=== PATIENT | female | born 1955 | race Caucasian/White ===

== ENCOUNTER → 2017-11-24 | Outpatient (CLI) | payer OTHER | END | disposition home or self-care (01) | LOC: STAR 10:46 | DX: R07.89 Other chest pain (principal) | CPT/HCPCS: 93005 ==

== ENCOUNTER 2019-08-13 20:34 | Emergency (ER) | payer MEDICARE ==
[~2019-08-13] VITALS: Ht 157.5 cm; Wt 71.3 kg
[2019-08-13 21:18] LABS: MICROSCOPIC AUTO
--- NOTE | 2019-08-13 21:24 | NUR ---
PT TO ROOM 23 PER PEDIS FROM TRIAGE. PT IS SITTING ON THE BED AWAKE AND ORIENTED X4. PT IS WEARING A BLUE SURGICAL MASK, SHE IS REPORTING A COUGH X3 DAYS. RN BEGINS ASSESSMENT. DURING THE QUESTIONING, RN IS ASKING THE SAME QUESTIONS, RN IS UNABLE TO CLEARLY MAKE OUT WHAT THE PATIENT IS SAYING. PT ASKED TO REMOVE MASK TO SEE IF THE MUFFLING OF HER VOICE WOULD CHANGE. RN OBSERVES THAT PATIENT HAS NO TEETH, AND EVEN WITHOUT THE MUFFLING FROM THE MASK, HER WORDS ARE HARD TO UNDERSTAND AT TIMES. ASSESSMENT FINISHED AND MD ENTERS ROOM. MD ASSESSMENT PERFORMED, AND MD BEGINS TO EDUCATE PATIENT ON THE POC WHILE SHE IS HERE IN THE ED. RN HAS ALL EQUIPMENT FOR IV START, TO INCLUDE LAB TUBES FOR BLOOD DRAW AND PRIMED BAG OF NACL FOR BOLUS. TECHNICAL TRANSLATOR STUDENT ATTEMPTS TO OBTAIN IV, BUT IS UNSUCCESSFUL X2. RN TAKES OVER AND LINE IS PLACED WITH ONE ATTEMPT, LAB DRAWN AND FLUID STARTED. PT IS PLACED IN GOWN, ATTACHED TO MONITORS FOR CARDIAC, NIBP AND PULSE OX. PT GIVEN THE CALL LIGHT WITH INSTRUCTIONS, SIDE RAILS UP X2 PER PATIENT REQUEST AND WARM BLANKET APPLIED. PT HAS HER BELONGINGS ON THE BED WITH HER.
[2019-08-13 21:25] LABS: CULTURE INDICATED? YES
--- NOTE | 2019-08-13 21:52 | NUR ---
IV PLACED WITH ONE ATTEMPT, LAB DRAWN AND DRESSING APPLIED AND SECURED. PT TOLERATED PROCEDURE WELL. RN GETTING READY TO START FLUID, US TECH AT BEDSIDE. FLUIDS WILL BE HELD UNTIL PATIENT RETURNS. PT TO US PER CART. SON REMAINS AT BEDSIDE.
[2019-08-13 22:03] LABS: BASOPHILS # (AUTO) 0.03 x10^3/uL (0-0.1); BASOPHILS % (AUTO) 0 % (0-1); EOSINOPHILS # (AUTO) 0.09 x10^3/uL (0-0.4); EOSINOPHILS % (AUTO) 1 % (1-7); LYMPHOCYTES % (AUTO) 20 % (22-44); MD NO; MEAN CORPUSCULAR HEMOGLOBIN 31.2 pg (27.0-34.8); MEAN CORPUSCULAR HGB CONC 33.6 g/dL (32.4-35.8); MEAN CORPUSCULAR VOLUME 92.8 fL (80-100); MEAN PLATELET VOLUME 7.9 fL (7.4-10.4); MONOCYTES # (AUTO) 0.93 x10^3/uL (0.2-0.8); MONOCYTES % (AUTO) 9 % (2-9); NEUTROPHILS # (AUTO) 7.62 x10^3/uL (1.8-6.8); NEUTROPHILS % (AUTO) 70 % (42-75); PLATELET COUNT 191 x10^3/uL (130-400); RED BLOOD COUNT 4.57 x10^6/uL (3.82-5.3); RED CELL DISTRIBUTION WIDTH 13.2 % (9.6-15.2)
[2019-08-13 22:15] LABS: ALANINE AMINOTRANSFERASE 35 U/L (12-78); ALBUMIN 3.7 g/dL (3.4-5.0); ANION GAP 9 mmol/L (5-15); CALCIUM 9.3 mg/dL (8.5-10.1); CHLORIDE 108 mmol/L (98-107)
[2019-08-13 22:18] LABS: ALKALINE PHOSPHATASE 114 U/L (45-117); BILIRUBIN,TOTAL 0.6 mg/dL (0.2-1.0); CREATININE 0.89 mg/dL (0.55-1.02); TOTAL PROTEIN 7.3 g/dL (6.4-8.2)
--- NOTE | 2019-08-13 22:30 | NUR ---
PT'S HERE TO SIT WITH PATIENT. PATIENT INFORMS RN THAT THEY ARE CURRENTLY LIVING IN A MOTEL THAT HAS BLACK MOLD. RN INQUIRES ABOUT THE ADDRESS THAT SHE VERIFIED WITH REGISTRATION, AND SHE INFORMS RN THAT THAT IS A FAMILY'S ADDRESS WHERE HER MAIL CAN BE DELIVERED SAFELY AND FREE. RN EDUCATES PATIENT ON HEALTH CONCERNS ASSOCIATED WITH BLACK MOLD TO INCLUDE UPPER RESP ISSUES. STRONGLY ENCOURAGED PATIENT TO SEEK RESIDENT IN EITHER A DIFFERENT ROOM OR DIFFERENT MOTEL, BUT EITHER WAY SHE NEEDS TO INFORM THE MOTEL OF THE ISSUE. WILL CONTINUE TO MONITOR PATIENT. CALL LIGHT WITHIN REACH, SIDE RAILS REMAIN UP X2 AT PATIENT'S REQUEST.
[2019-08-13] MEDS ORDERED: OMNIPAQUE 350 MG/ML, 100ML BOTTLE ONE (22:41)
--- NOTE | 2019-08-13 22:58 | NUR ---
PT TO CT PER CART. WARM BLANKETS GIVEN. PT SON REMAINS AT BEDSIDE.
--- NOTE | 2019-08-13 23:03 | NUR ---
PT HAS RETURNED FROM CT. PT RE-HOOKED TO MONITOR. BEAR HUGGER APPLIED TO HELP WARM PATIENT. SON REMAINS AT BEDSIDE. WILL CONTINUE TO MONITOR.
--- NOTE | 2019-08-13 23:24 | NUR ---
MD IN TO DISCUSS TEST RESULTS WITH PATIENT. IV FLUID BOLUS RUNNING WITHOUT DIFF. PATIENT SON REMAINS AT BEDSIDE. AWAITING ORDERS TO DETERMINE WITH PATIENT WILL GO HOME OR BE ADMITTED.
[2019-08-14 00:05] VITALS: BP 136/68
--- NOTE | 2019-08-14 00:06 | NUR ---
DISCHARGE INSTRUCTIONS GIVEN TO PATIENT. PT VERBALIZES UNDERSTANDING OF ALL INSTRUCTIONS AND FOLLOW UP. PT AMBULATES OUT ED WITH SON.
== END 2019-08-14 00:24 | disposition home or self-care (01) ==
LOC: ED 20:53
DX: K57.92 Diverticulitis of intestine, part unspecified, without perforation or abscess without bleeding (principal); R10.30 Lower abdominal pain, unspecified; Z90.49 Acquired absence of other specified parts of digestive tract
CPT/HCPCS: 36415; 74177; 76830; 80053; 81001; 85025; 87086; 99285; Q9967

== ENCOUNTER → 2020-07-24 | Outpatient (CLI) | payer MEDICARE | END | disposition home or self-care (01) | LOC: CFH 12:47 | PROVIDERS: ATTEND Internal Medicine | DX: N64.9 Disorder of breast, unspecified (principal) | CPT/HCPCS: 76642; 77065 ==